=== PATIENT | female | born 1960 | race Caucasian/White ===

== ENCOUNTER → 2018-09-17 | Outpatient (REF) | payer MEDICARE ==
[~2018-09-17] MED LIST: CO Q-10 PO; COREG3.125 MG PO; DIGOXIN0.125 MG PO; K-TABS10 MEQ PO; LASIX 20 MG TAB20 MG PO; LOVASTATIN10 M1 PO; OMEGA 3 500 5001 CAP PO; TYLENOL 500MG TAB PO; VITAMIN B-121000 MC3 PO; ZESTRIL5 M1 PO
== END | disposition home or self-care (01) ==
LOC: ULTRASND 08:24
PROVIDERS: ATTEND Nurse Practitioner Family
DX: R10.2 Pelvic and perineal pain (principal); R14.0 Abdominal distension (gaseous); K46.9 Unspecified abdominal hernia without obstruction or gangrene; R19.04 Left lower quadrant abdominal swelling, mass and lump